=== PATIENT | male | born 1955 | race Caucasian/White ===

== ENCOUNTER 2017-09-11 16:53 | Emergency (ER) | payer BC, OTHER ==
[2017-09-11] MEDS ORDERED: Sodium Chloride 0.9% 1,000 ML IV ONE (17:20)
[2017-09-11] MEDS ORDERED: Sodium Chloride 0.9% 1,000 ML ONE (17:39)
[2017-09-11 17:43] LABS: BASO % 0.7 % (0.0-2.0); EOS % 0.2 % (0.0-4.0); HEMATOCRIT 44.5 % (35.0-51.0); LYMPH # 0.4 K/uL (1.0-4.3); LYMPH % 10.3 % (20.0-40.0); MEAN CORPUSCULAR HEMOGLOBIN 29.8 pg (27.0-31.0); MEAN CORPUSCULAR HGB CONC 33.8 g/dL (33.0-37.0); MEAN PLATELET VOLUME 7.8 fL (7.2-11.7); MONO # 0.2 K/uL (0.0-0.8); MONO % 5.3 % (0.0-10.0); NRBC % 0.2 % (0.0-2.0); RED CELL DISTRIBUTION WIDTH 13.8 % (11.5-14.5); WHITE BLOOD COUNT 3.7 K/uL (4.8-10.8)
--- NOTE | 2017-09-11 17:50 | C.PDOC ---
History Of Present Illness <Tessy Munson - Last Filed: 09/12/17 05:14> <Usman Moser - Last Filed: 09/13/17 07:52> 61 year old male, whose PMHx includes HTN, presents to the ED for evaluation of subjective fever, cough, and dizziness which began earlier today. Patient also complains of a big bite to his neck, and suspects he may be bit by a tick. Patient states he has been compliant with his medication and denies chest pain, shortness of breath, recent travel, sick contacts or history of smoking. (Usman Moser) <Tessy Munson - Last Filed: 09/12/17 05:14> History Per: Patient History/Exam Limitations: no limitations Onset/Duration Of Symptoms: Hrs Current Symptoms Are (Timing): Still Present Additional History Per: Patient <Usman Moser - Last Filed: 09/13/17 07:52> Time Seen by Provider: 09/11/17 17:12 Chief Complaint (Nursing): Dizziness/Lightheaded Past Medical History Reviewed: Historical Data, Nursing Documentation, Vital Signs - Medical History PMH: HTN Surgical History: No Surg Hx Family History: States: Unknown Family Hx - Social History Hx Alcohol Use: No Hx Substance Use: No - Immunization History Hx Tetanus Toxoid Vaccination: No Hx Influenza Vaccination: No Hx Pneumococcal Vaccination: No <Usman Moser - Last Filed: 09/13/17 07:52> Vital Signs: Last Vital Signs Temp 98.1 F 09/11/17 20:13 Pulse 75 09/11/17 20:13 Resp 21 09/11/17 20:13 BP 143/61 09/11/17 20:13 Pulse Ox 96 09/13/17 07:52 Review Of Systems Constitutional: Positive for: Fever (subjective ) Cardiovascular: Negative for: Chest Pain Respiratory: Positive for: Cough. Negative for: Shortness of Breath Neurological: Positive for: Dizziness <Usman Moser - Last Filed: 09/13/17 07:52> Physical Exam - Physical Exam Appears: Non-toxic, No Acute Distress Skin: Normal Color, Warm, Dry, Other (bug bite to right lateral neck with slight erythema and excoriations ) Head: Atraumatic, Normacephalic Eye(s): bilateral: Normal Inspection Ear(s): Bilateral: Normal Nose: Normal, No Discharge Oral Mucosa: Moist Throat: Normal, No Erythema, No Exudate Neck: Normal ROM, Supple Chest: Symmetrical, No Deformity, No Tenderness Cardiovascular: Rhythm Regular, No Murmur Respiratory: Normal Breath Sounds, No Rales, No Rhonchi, No Wheezing Extremity: Normal ROM, Capillary Refill (less than 2 seconds ) Neurological/Psych: Oriented x3, Normal Speech, Normal Cognition Gait: Steady <Usman Moser - Last Filed: 09/13/17 07:52> ED Course And Treatment - Laboratory Results Result Diagrams: 09/11/17 17:40 09/11/17 17:40 <Tessy Munson - Last Filed: 09/12/17 05:14> - Laboratory Results Result Diagrams: 09/11/17 17:40 09/11/17 17:40 ECG: Interpreted By Me, Viewed By Me ECG Rhythm: Sinus Rhythm Interpretation Of ECG: Normal sinus rhythm at rate 86bpm. Normal intervals, normal axis. No ST/T wave abnormalities. Rate From EC O2 Sat by Pulse Oximetry: 96 (on RA) Pulse Ox Interpretation: Normal - Other Rad CXR X-Ray: Interpreted by Me, Viewed By Me, Read By Radiologist Interpretation: HISTORY: chest pain. COMPARISON: None available. TECHNIQUE: Chest PA and lateral. FINDINGS: LUNGS: No focal consolidation. Please note that chest x-ray has limited sensitivity for the detection of pulmonary masses. PLEURA: No significant pleural effusion identified. No definite pneumothorax . CARDIOVASCULAR: The cardiomediastinal silhouette appears within normal limits of size. OSSEOUS STRUCTURES: Degenerative changes. VISUALIZED UPPER ABDOMEN: Elevation of the right hemidiaphragm. OTHER FINDINGS : None. IMPRESSION: No focal consolidation, significant pleural effusion, or definite pneumothorax identified. Progress Note: Bloodwork, Urinalysis, CXR, and EKG ordered and reviewed. Toradol IVP and IV Fluids administered. <Usman Moser - Last Filed: 09/13/17 07:52> Medical Decision Making <Tessy Munson - Last Filed: 09/12/17 05:14> <Usman Moser - Last Filed: 09/13/17 07:52> Medical Decision Making: Patient's labs were reviewed, and results are unremarkable. Patient will be discharged presumptively for viral syndrome vs Lyme disease Patient will be provided with prescription for 2 week course of Doxycycline and is advised to follow up with his PMD within 1-2 days for further evaluation and/ or return to the ED if symptoms worsen. (Tessy Munson) Case was endorsed to Dr. Munson at 1900 pending labs, reevaluation and disposition. (Usman Moser) Disposition - Disposition Disposition Time: 05:14 <Tessy Munson - Last Filed: 09/12/17 05:14> <Usman Moser - Last Filed: 09/13/17 07:52> - Disposition Referrals: [facility] [Outside] Disposition: HOSPITALIZED Condition: FAIR Prescriptions: Doxycycline Monohydrate 100 mg PO BID #28 tablet Instructions: Lyme Disease (ED), Viral Syndrome (ED) Forms: Gen Discharge Inst Jordanian, [facility] (Malay) Print Language: JAMAICAN - Clinical Impression Clinical Impression: Viral syndrome <Tessy Munson - Last Filed: 09/12/17 05:14> - Scribe Statement The provider has reviewed the documentation as recorded by the Scribe (Eula Grider) <Usman Moser - Last Filed: 09/13/17 07:52> - Scribe Statement Provider Attestation: All medical record entries made by the Scribe were at my direction and personally dictated by me. I have reviewed the chart and agree that the record accurately reflects my personal performance of the history, physical exam, medical decision making, and the department course for this patient. I have also personally directed, reviewed, and agree with the discharge instructions and disposition. (Usman Moser) Physician Patient Turnover Patient Signed Over To: Tessy Munson Handoff Comments: pending labs, re-evaluation, and disposition <Usman Moser - Last Filed: 09/13/17 07:52>
--- NOTE | 2017-09-11 18:00 | RAD ---
HISTORY: chest pain COMPARISON: None available TECHNIQUE: Chest PA and lateral FINDINGS: LUNGS: No focal consolidation. Please note that chest x-ray has limited sensitivity for the detection of pulmonary masses. PLEURA: No significant pleural effusion identified. No definite pneumothorax . CARDIOVASCULAR: The cardiomediastinal silhouette appears within normal limits of size. OSSEOUS STRUCTURES: Degenerative changes. VISUALIZED UPPER ABDOMEN: Elevation of the right hemidiaphragm. OTHER FINDINGS: None. IMPRESSION: No focal consolidation, significant pleural effusion, or definite pneumothorax identified.
[2017-09-11 18:54] LABS: RBC URINE 7 /hpf (0-3); URINE BACTERIA RARE (<OCC); URINE BILIRUBIN NEGATIVE (NEGATIVE); URINE BLOOD 1+ (NEGATIVE); URINE COLOR Yellow (YELLOW); URINE GLUCOSE (UA) NORMAL (Normal); URINE KETONE TRACE mg/dL (NEGATIVE); URINE LEUKOCYTE ESTERASE NEG Leu/uL (Negative); URINE PROTEIN NEGATIVE (NEGATIVE); URINE UROBILINOGEN NORMAL mg/dL (0.2-1.0); WBC URINE < 1 /hpf (0-5)
[2017-09-11 19:07] LABS: ALB/GLOB RATIO 1.6 (1.0-2.1); ALKALINE PHOSPHATASE 54 U/L (38-126); ALT/SGPT 46 U/L (21-72); AST/SGOT 30 U/L (17-59); BILIRUBIN,TOTAL 0.8 mg/dL (0.2-1.3); BLOOD UREA NITROGEN 15 mg/dL (9-20); CALCIUM 7.9 mg/dl (8.6-10.4); CARBON DIOXIDE 24 mmol/L (22-30); CHLORIDE 100 mmol/L (98-107); GFR AFRICAN-AMERICAN > 60; GLUCOSE,RANDOM 110 mg/dL (75-110); POTASSIUM 3.5 mmol/L (3.6-5.2); SODIUM 134 mmol/L (132-148); TOTAL PROTEIN 6.9 g/dL (6.3-8.3)
[2017-09-11 20:30] VITALS: PULSE 75
[2017-09-11 20:32] VITALS: BP 143/61; RESP 21; TEMP 98.1; O2SAT 96
--- NOTE | 2017-09-13 08:33 | CARD ---
APPROVED REPORT EKG Measurement Heart [id number] <Conclusion> Normal sinus rhythm Normal ECG
== END 2017-09-11 20:33 | disposition short-term general hospital (02) ==
LOC: C.ER 16:53
DX: B34.9 Viral infection, unspecified (principal)
CPT/HCPCS: 71020; 80053; 81001; 84484; 85025; 86617; 86618; 96361; 96374; 99285; J1885; J7040